=== PATIENT | female | born 1955 | race Caucasian/White ===

== ENCOUNTER 2018-03-07 16:56 | Outpatient (REF) | payer MEDICAID, SELFPAY ==
[2018-03-07 19:47] LABS: ALT 32 U/L (12-78); AST 22 U/L (15-37)
== END 2018-03-07 17:16 ==
LOC: NCHCN 16:56
PROVIDERS: PCP Internal Medicine; Visit Provider Nurse Practitioner Family
DX: Z51.81 Encounter for therapeutic drug level monitoring (principal)
CPT/HCPCS: 84450; 84460

== ENCOUNTER 2018-04-05 15:20 | Outpatient (REF) | payer MEDICAID, SELFPAY ==
[2018-04-05 19:12] LABS: ALT 28 U/L (12-78); AST 17 U/L (15-37)
== END 2018-04-05 15:40 ==
LOC: NCHCN 15:20
PROVIDERS: PCP Internal Medicine; Visit Provider Nurse Practitioner Family
DX: B35.1 Tinea unguium (principal)
CPT/HCPCS: 84450; 84460

== ENCOUNTER 2018-09-05 11:23 | Outpatient (REF) | payer MEDICAID, SELFPAY ==
[2018-09-05 19:31] LABS: Anion Gap 10.2 mmol/L (3-11); BUN 14 mg/dL (7-18); CO2 28.8 mmol/L (21.0-32.0); CREATININE 0.83 mg/dL (0.55-1.02); Calcium 9.6 mg/dL (8.5-10.1); Chloride 104 mmol/L (98-107); Glucose 100 mg/dL (70-100); Potassium 3.8 mmol/L (3.5-5.1); Sodium 143 mmol/L (136-145); TSH 1.46 uIU/mL (0.36-3.74)
== END 2018-09-05 11:43 ==
LOC: NCHCN 11:23
PROVIDERS: PCP Internal Medicine; Visit Provider Nurse Practitioner Family
DX: I10 Essential (primary) hypertension (principal)
CPT/HCPCS: 80048; 84443

== ENCOUNTER 2019-10-09 10:48 | Outpatient (REF) | payer MEDICAID, SELFPAY ==
[2019-10-09 20:27] LABS: Hemoglobin A1C 5.8 % (<5.7)
[2019-10-09 20:33] LABS: Iron 72 ug/dL (50-170)
[2019-10-09 20:50] LABS: Vitamin D 25 Total 37.3 ng/ml (30-100)
[2019-10-09 20:52] LABS: Anion Gap 4.7 mmol/L (3-11); BUN 16 mg/dL (7-18); CO2 32.3 mmol/L (21.0-32.0); CREATININE 0.75 mg/dL (0.55-1.02); Calcium 9.3 mg/dL (8.5-10.1); Calculated LDL 111 mg/dL (<100); Chloride 106 mmol/L (98-107); Cholesterol 194 mg/dL (<200); Ferritin 118 ng/mL (8-252); Glucose 89 mg/dL (74-106); HDL Cholesterol 49 mg/dL (40-60); Magnesium 1.8 mg/dL (1.8-2.4); Sodium 143 mmol/L (136-145); Triglyceride 173 mg/dL (<150)
== END 2019-10-09 11:08 ==
LOC: NCHCN 10:48
PROVIDERS: PCP Internal Medicine; Visit Provider Nurse Practitioner Family
DX: I10 Essential (primary) hypertension (principal); R73.03 Prediabetes; M25.571 Pain in right ankle and joints of right foot; Z13.220 Encounter for screening for lipoid disorders
CPT/HCPCS: 80048; 80061; 82306; 82728; 83036; 83540; 83735

== ENCOUNTER 2019-11-30 10:28 | Outpatient (REF) | payer MEDICAID, SELFPAY ==
[2019-11-30 19:49] LABS: Hemoglobin A1C 5.6 % (<5.7)
== END 2019-11-30 10:48 ==
LOC: NCHCN 10:28
PROVIDERS: PCP Internal Medicine; Visit Provider Nurse Practitioner Family
DX: R73.03 Prediabetes (principal)
CPT/HCPCS: 83036

== ENCOUNTER 2020-11-13 10:33 | Outpatient (REF) | payer MEDICAID, SELFPAY ==
[2020-11-13 21:57] LABS: Hemoglobin A1C 5.7 % (<5.7)
[2020-11-14 06:47] LABS: ALT 34 U/L (14-59); AST 18 U/L (15-37); Albumin 3.8 g/dL (3.4-5.0); Alkaline Phosphatase 78 U/L (46-116); Anion Gap 7.2 mmol/L (3-11); BUN 24 mg/dL (7-18); Bilirubin, Total 0.4 mg/dL (0.2-1.0); CO2 29.8 mmol/L (21.0-32.0); Calcium 9.2 mg/dL (8.5-10.1); Calculated LDL 134 mg/dL (<100); Chloride 105 mmol/L (98-107); Cholesterol 210 mg/dL (<200); Estimated GFR 55.82 (mL/min/1.73m2); Glucose 101 mg/dL (74-106); HDL Cholesterol 57 mg/dL (40-60); Sodium 142 mmol/L (136-145); Total Protein 7.2 g/dL (6.4-8.2); Triglyceride 96 mg/dL (<150)
== END 2020-11-13 10:34 | disposition home or self-care (01) ==
LOC: NCHCN 10:33
PROVIDERS: PCP Internal Medicine; Visit Provider Physician Assistant
DX: I10 Essential (primary) hypertension (principal); R73.03 Prediabetes; F41.1 Generalized anxiety disorder; E66.9 Obesity, unspecified
CPT/HCPCS: 80053; 80061; 83036

== ENCOUNTER 2022-01-08 15:49 | Outpatient (REF) | payer MEDICARE, MEDICAID, SELFPAY ==
[2022-01-08 19:15] LABS: Anion Gap 3.1 mmol/L (3-11); BUN 21 mg/dL (7-18); CO2 32.9 mmol/L (21.0-32.0); CREATININE 0.9 mg/dL (0.55-1.02); Calcium 9.6 mg/dL (8.5-10.1); Chloride 103 mmol/L (98-107); Estimated GFR 70.95 (mL/min/1.73m2); Glucose 109 mg/dL (74-106); Potassium 4.2 mmol/L (3.5-5.1); Sodium 139 mmol/L (136-145)
== END 2022-01-08 15:50 | disposition home or self-care (01) ==
LOC: NCHCN 15:49
PROVIDERS: PCP Internal Medicine; Visit Provider Physician Assistant
DX: I10 Essential (primary) hypertension (principal); E66.9 Obesity, unspecified
CPT/HCPCS: 80048

== ENCOUNTER 2022-07-07 13:32 | Outpatient (REF) | payer MEDICARE, MEDICAID, SELFPAY ==
[2022-07-07 18:33] LABS: HCT 44.3 % (36.0-46.0); HGB 14.4 g/dL (11.2-15.7); MCH 31.2 pg (27.0-33.0); MCHC 32.5 % (32.0-36.0); MCV 96 fL (80-95); MPV 10.3 fL (8.0-11.0); Platelet Count 278 10^3/uL (130-400); RBC 4.61 10^6/uL (3.93-5.22); RDW 13.7 % (11.7-14.6); RDW-SD 48.8 fL; WBC 4.48 10^3/uL (4.4-10.8)
[2022-07-07 19:08] LABS: Vitamin D 25 Total 39.4 ng/mL (30-100)
== END 2022-07-07 13:33 | disposition home or self-care (01) ==
LOC: NCHCN 13:32
PROVIDERS: PCP Internal Medicine; Visit Provider Physician Assistant
DX: I10 Essential (primary) hypertension (principal); R73.03 Prediabetes; M85.88 Other specified disorders of bone density and structure, other site; R68.89 Other general symptoms and signs
CPT/HCPCS: 82306; 85027; 84443

== ENCOUNTER 2022-08-06 09:30 | Outpatient (REF) | payer MEDICARE, MEDICAID, SELFPAY ==
[2022-08-06 19:09] LABS: Anion Gap 5.7 mmol/L (3-11); BUN 17 mg/dL (7-18); CO2 33.3 mmol/L (21.0-32.0); CREATININE 0.9 mg/dL (0.55-1.02); Calcium 9.3 mg/dL (8.5-10.1); Chloride 101 mmol/L (98-107); Estimated GFR 70.95 (mL/min/1.73m2); Glucose 98 mg/dL (74-106); Sodium 140 mmol/L (136-145)
== END 2022-08-06 09:31 | disposition home or self-care (01) ==
LOC: NCHCN 09:30
PROVIDERS: PCP Internal Medicine; Visit Provider Physician Assistant
DX: I10 Essential (primary) hypertension (principal)
CPT/HCPCS: 80048

== ENCOUNTER 2023-07-14 10:57 | Outpatient (REF) | payer MEDICARE, MEDICAID, SELFPAY ==
[2023-07-20 17:59] LABS: 2-OH-Ethyl-Flurazepam Negative ng/mL (Cutoff: 10); 7-NH-Clonazepam Negative ng/mL (Cutoff: 10); 7-NH-Flunitrazepam Negative ng/mL (Cutoff: 10); Alpha OH-Alprazolam Negative ng/mL (Cutoff: 10); Alpha-OH Midazolam Negative ng/mL (Cutoff: 10); Alpha-OH-Triazolam Negative ng/mL (Cutoff: 10); Alprazolam Negative ng/mL (Cutoff: 10); Benzodiazepines Interpretation Negative.; Chlordiazepoxide Negative ng/mL (Cutoff: 10); Clobazam Negative ng/mL (Cutoff: 10); Clonazepam Negative ng/mL (Cutoff: 10); Diazepam Negative ng/mL (Cutoff: 10); Flurazepam Negative ng/mL (Cutoff: 10); Lorazepam Negative ng/mL (Cutoff: 10); Midazolam Negative ng/mL (Cutoff: 10); N-Desmethylclobazam Negative ng/mL (Cutoff: 10); Prazepam Negative ng/mL (Cutoff: 10); Temazepam Negative ng/mL (Cutoff: 10); Triazolam Negative ng/mL (Cutoff: 10); Zolpidem Carboxylic acid Negative ng/mL (Cutoff: 10)
== END 2023-07-14 10:58 | disposition home or self-care (01) ==
LOC: NCHCN 10:57
PROVIDERS: PCP Internal Medicine; Visit Provider Physician Assistant
DX: F41.9 Anxiety disorder, unspecified (principal)
CPT/HCPCS: 80346

== ENCOUNTER 2023-07-15 13:00 | Outpatient (REF) | payer MEDICARE, MEDICAID, SELFPAY ==
[2023-07-15 19:42] LABS: ALT 31 U/L (14-59); AST 21 U/L (15-37); Albumin 3.6 g/dL (3.4-5.0); Alkaline Phosphatase 74 U/L (46-116); Anion Gap 7.4 mmol/L (3-11); BUN 18 mg/dL (7-18); Bilirubin, Total 0.4 mg/dL (0.2-1.0); CO2 31.6 mmol/L (21.0-32.0); CREATININE 0.9 mg/dL (0.55-1.02); Calcium 9.7 mg/dL (8.5-10.1); Chloride 103 mmol/L (98-107); Estimated GFR 70.51 (mL/min/1.73m2); Glucose 86 mg/dL (74-106); Potassium 4.1 mmol/L (3.5-5.1); Sodium 142 mmol/L (136-145); Total Protein 7.1 g/dL (6.4-8.2); Vitamin B12 575 pg/mL (193-986); Vitamin D 25 Total 30.4 ng/mL (30-100)
== END 2023-07-15 13:01 | disposition home or self-care (01) ==
LOC: NCHCN 13:00
PROVIDERS: PCP Internal Medicine; Visit Provider Physician Assistant
DX: M85.80 Other specified disorders of bone density and structure, unspecified site (principal); I10 Essential (primary) hypertension; F41.9 Anxiety disorder, unspecified
CPT/HCPCS: 80053; 82306; 82607

== ENCOUNTER 2023-07-22 12:30 | Outpatient (REF) | payer MEDICARE, SELFPAY ==
[2023-07-22 19:24] LABS: Calculated LDL 128 mg/dL (<100); Cholesterol 212 mg/dL (<200); HDL Cholesterol 61 mg/dL (40-60); Triglyceride 116 mg/dL (<150)
== END 2023-07-22 12:31 | disposition home or self-care (01) ==
LOC: NCHCN 12:30
PROVIDERS: PCP Internal Medicine; Visit Provider Physician Assistant
DX: I10 Essential (primary) hypertension (principal)
CPT/HCPCS: 80061

== ENCOUNTER 2024-03-16 20:08 | Outpatient (REF) | payer MEDICARE, SELFPAY ==
--- OUTSIDE RECORDS SUMMARY | 2024-03-16 20:55 | XMS_ITS | Encounter Summary ---
Author Organization [facility] Address [address] [place] [address] Care Team Providers Care Health Information Technician Name Role Phone Unavailable Primary Care Provider Unavailabl e Encounter Details Date Type Department Care Team (Late st Contact Info) Description 04/13/2011 Results Only [facility] Laboratory Services - [facility] ([facility] [address], [place] [id number] [place], [facility] [address] [place], [place] [id number] Social History Tobacco Use Types Packs/Day Years Used Date Smoking Tobacco: Never Assessed Comments Unknown Sex and Gender Information Value Date Recorded Sex Assigned at Not on file Legal Sex Female 17:56 EST Gender Identity Not on file Sexual Orientation Not on file documented as of this encounter Plan of Treatment Not on file documented as of this encounter Procedures Procedure Name Priority Date/Time Associated Diagnosis Comments PAP TEST- RESULT ONLY Routine 04/13/2011 0:00 EST documented in this encounter Results * PAP TEST- RESULT ONLY (04/13/2011 0:00 EST) Pathology Report: CYTOPATHOLOGY REPORT Reports generated via electronic interface contain original data; however they are lacking the format of the original report. Caution should be taken when reading/interpreti ng unformatted reports. Name: ? TAMIKA RAI ? Accession #: ? [id number] ? : ? 1955 (Age: 55) ??F ?Collect Date: ? 04/13/2011 ? Location: ? [facility] ? Receive Date: ? 04/14/2011 ? Provider: KINGS HENRY CNM Copy to: ? Final Report SPECIMEN ADEQUACY ? Satisfactory for Evaluation - transformation zone component present GENERAL CATEGORIZATION ? Negative for Intraepithelial Lesion or Malignancy INTERPRETATION ? Shift in rosibel present suggestive of bacterial vaginosis. Last Menstural Period: 09/17 Other: Additional clinical information: previous pap WNL 2006 Specimen/Source: ??Pap Test, Cervix/Endocervix, ThinPrep Imaging System with manual evaluation Document reviewed and electronically signed by: ? Cat Turk, DARRYL(ASCP) ? Report ??Date: 04/15/2011 16:02 HPV with Pap Test ? Date Ordered: ? 04/15/2011 ? Status: ?? Signed Out ?Date Complete: ? 04/20/2011 ? By: ??System Interface ? Date Reported: ? 04/20/2011 ? Interpretation RESULT: Negative for HPV types 16, 18, 31, 33, 35, 39, 45, 51, 52, 56, 58, 59, and 68. Comments Document reviewed and electronically signed by: ? System Interface ? Report date: 04/20/2011 By the signature above, the attending physician certifies that he/she has personally conducted a gross and/or microscopic examination of the described specimens and rendered or confirmed the above diagnosis. End of Report [facility] 04/13/2011 04/14/2011 us [facility] [place] CNM PATHOLOGY ORDERABLES Fin al Result [facility] [address] [place] [address] documented in this encounter Visit Diagnoses Not on filedocumented in this encounter
--- OUTSIDE RECORDS SUMMARY | 2024-03-16 20:55 | XMS_ITS | Clinical Summary ---
Author Organization [facility] Address [address] [place] [address] Care Team Providers Care Yarn Carrier Name Role Phone Unknown, Provider MD Primary Care Provider Unava ilable Social History Tobacco Use Types Packs/Day Years Used Date Smoking Tobacco: Never Assessed Comments Unknown Sex and Gender Information Value Date Recorded Sex Assigned at Not on file Legal Sex Female 17:56 EST Gender Identity Not on file Sexual Orientation Not on file Plan of Treatment Health Maintenance Due Date Last Done Comments Hepatitis C Screen 1955 Fall Risk Screening 2021 COVID-19 Vaccine (2023- season) 2023 RSV Immunization ( o r 60+ Years) (1 - 1-dose 75+ series) 08/20/2031 Care Teams Yarn Carrier Relationship Specialty Start Date End Date Unknown, Provider, PCP - General 08/05/16
--- OUTSIDE RECORDS SUMMARY | 2024-03-16 20:55 | XMS_ITS | Continuity of Care Document ---
Author Organization [facility] Address [address] [place] [address] Care Team Providers Care Rn Referral Name Role Phone Primeau IPHCJohn Primary Care Physician Encounter [facility] Date(s): 02/27/22 - 02/27/22 [facility] [address] [place] [address] Discharge Disposition: Home or Self Care Attending Physician: Lurdes Kemp PA-C Admitting Physician: Lurdes Kemp PA-C Referring Physician: Lurdes Kemp PA-C Allergies, Adverse Reactions, Alerts Substance Reaction Severity Status ampicillin Skin rash Unknown Active codeine Hallucinations Unknown Active amoxicillin-clavulanate Skin rash Severe Acti ve penicillins Skin rash Unknown Active KAREN inhibitors Unknown Active Immunizations Given and Recorded Vaccine Date Status Refusal Reason rubella virus vaccine 02/09/00 Recorded Medications halobetasol 0.05% topical ointment 1 debbie, Topical, Daily, # 50 g, 1 Refill(s), Pharmacy: [id number] Start Date: 10/17/21 Status: Ordered ibuprofen 200 mg oral capsule 200 mg = 1 cap, Oral, every 6 hr, PRN other (see comment), as needed Start Date: 10/06/21 Status: Ordered multivitamin adult, oral tablet 2 tab, Oral, Daily, one Daily Complete Start Date: 10/06/21 Status: Ordered triamterene-hydrochlorothiazide 37.5 mg-25 mg oral tablet 0 Refill(s) Start Date: 10/17/21 Status: Ordered Problem List Condition Confirmation Course Effective Dates Status Health St atus Informant Anxiety Confirmed Active Breast lump Confirmed Active Genuine stress incontinence Confirmed Active Hypertensive disorder Confirmed Active Lichen sclerosus et atrophicus 1 Confirmed Active Obesity Confirmed Active Vertigo Confirmed Active 1From 10-17-2020 visit: Well-managed with clobatesol when needed. Procedures Procedure Date Related Diagnosis Body Site Status Procedure on ankle 1 07/24/19 Comp leted Open reduction of fracture w ith internal fixation (procedure) 2 04/25/19 Completed Due 10/2026 3, 4 08/03/16 Completed Cholecystectomy 02/07/99 Completed Tubal ligation 02/07/91 Completed Lumpectomy of right breast 02/07/89 Completed 1hardware removal R ankle 2ORIF R distal fibula fx 3Pap Due - 07/2021 11/25/06, 04/13/11, 08/04/16 - Negative/Negative - Neg/Neg Next pap due 10/2026 Social History Social History Type Response Tobacco Never tobacco user T obacco Use:. Sex Female Patient Care team information Personnel Name: [facility], John Small MD Address: Address: [address] [address]- [place]
--- OUTSIDE RECORDS SUMMARY | 2024-03-16 20:55 | XMS_ITS | Encounter Summary ---
Author Organization [facility] Address [address] [place] [address] Care Team Providers Care Tactical Intelligence Officer Name Role Phone Unavailable Primary Care Provider Unavailabl e Encounter Details Date Type Department Care Team (Late st Contact Info) Description 02/07/2004 Results Only [facility] conversion [address] [place] [address] Juanis Hughes, MELT HOUSE SUPERVISOR Social History Tobacco Use Types Packs/Day Years [...] Procedure Name Priority Date/Time Associated Diagnosis Comments CYTOPATHOLOGY Routine 02/07/2004 0:00 EST documented in this encounter Results * CYTOPATHOLOGY (02/07/2004 0:00 EST) Pathology Report: CYTOPATHOLOGY REPORT Reports generated via electronic interface contain original data; however they are lacking the format of the original report. Caution should be taken when reading/interpreti ng unformatted reports. Name: ? TAMIKA RAI ? Accession #: ? [id number] : ? 1955 (Age: 48) ??F ?Collect Date: ? 02/07/2004 Location: ? [facility] ? Receive Date: ? 02/11/2004 Provider: ?JUANIS HUGHES APRN Copy to: ? Specimen/Source: ?ThinPrep Pap Test, Source Not Provided Last Menstrual Period: ? 01/18/04 Other: ? HPVA - HPV testing requested if ASC-US on the current ThinPrep Pap test. ? SPECIMEN ADEQUACY ? Satisfactory for Evaluation - transformation zone component present GENERAL CATEGORIZATION ? Negative for Intraepithelial Lesion or Malignancy INTERPRETATION ? Shift in rosibel present suggestive of bacterial vaginosis. ? Document reviewed and electronically signed by: ? DARRYL Dhaliwal(ASCP) ? Report Date: ??02/13/2004 12:09 End of Report JESSICA SINGH 02/07/2004 02/11/2004 us Juanis Hughes APRN PATHOLOGY ORDERABLES Fi nal Result JESSICA SINGH [address] [place] [address] documented in this encounter Visit Diagnoses Not on filedocumented in this encounter
--- OUTSIDE RECORDS SUMMARY | 2024-03-16 20:55 | XMS_ITS | Referral Summary ---
Author Organization [facility] Address [address] [place] [address] Care Team Providers Care Lift Operator Name Role Phone Unknown, Provider Primary Care Provider Unava ilable Social History Tobacco Use Types Packs/Day Years Used Date Smoking Tobacco: Never Assessed Comments Unknown Sex and Gender Information Value Date Recorded Sex Assigned at Not on file Legal Sex Female 17:56 EST Gender Identity Not on file Sexual Orientation Not on file Plan of Treatment Not on file Care Teams Lift Operator Relationship Specialty Start Date End Date Unknown, Provider, PCP - General 08/05/16
--- OUTSIDE RECORDS SUMMARY | 2024-03-16 20:55 | XMS_ITS | Encounter Summary ---
Author Organization [facility] Address [address] [place] [address] Care Team Providers Care Postmaster Relief Name Role Phone Unknown, Provider Primary Care Provider Unava ilable Encounter Details Date Type Department Care Team (Late st Contact Info) Description 07/21/2019 Lab Requisition [facility] Pathology & Laboratory Medicine - [facility] [address] [place] [address] Outr Resulting Lab, Provider Social History Tobacco Use Types Packs/Day Years [...] Procedure Name Priority Date/Time Associated Diagnosis Comments DO NOT ORDER STANDALONE - BROAD COVID TEST Today 07/21/2019 9:05 EDT COVID-19 TESTING Routine 07/21/2019 9:05 EDT documented in this encounter Results * DO NOT ORDER STANDALONE - BROAD COVID TEST (07/21/2019 9:05 EDT) COVID-19 rt-PCR Result NEGATIVE Negative 07/22/2019 19:36 EDT [facility] Comment: 2019-novel Coronavirus (2019-nCoV) not detected by the qRT-PCR assay. Consider testing for other respiratory viruses or re-collecting for 2019-nCoV testing. Note: Optimum timing for peak viral levels during infections caused by 2019-nCoV have not been determined. Collection of multiple specimens from the same patient may be necessary to detect the virus. Limitations Positive results are indicative of active infection with SARS-CoV-2 but do not rule out bacterial infection or co-infection with other viruses. The agent detected may not be the definite cause of disease. In addition, detection of viral RNA may not indicate the presence of infectious virus or that SARS-CoV-2 is the causative agent for clinical symptoms. Negative results do not preclude SARS-CoV-2 infection and should not be used as the sole basis for patient management decisions. Negative results must be combined with clinical observations, patient history, and epidemiological information. False negative results may also occur if amplification inhibitors are present in the specimen or if inadequate numbers of organisms are present in the specimen. Optimum specimen types and timing for peak viral levels during infections caused by SARS-CoV-2 have not been fully determined. Collection of multiple specimens (types and time points) from the same patient may be necessary to detect the virus. The test was validated for use with upper respiratory specimens obtained via nasopharyngeal or oropharyngeal swabs in VTM, UTM, M4, M5, M6, saline, and MTM media. The performance of this test has not been established for other specimens. Specimens collected using other FDA recommended Specimen Collection Materials listed in the FDA COVID-19 Diagnostic Technologies communication (May 04, 2019) are processed with the caveat that they were not all validated for use with this test and the result must be interpreted in this context. Furthermore, a false negative results may occur if a specimen is improperly collected, transported or handled. If the virus mutates in the RT-PCR target region, SARS-CoV-2 may not be detected or may be detected less predictably. Inhibitors or other types of interference may produce a false negative result. An interference study evaluating the effect of common cold medications was not performed. This test is not FDA-cleared but its performance characteristics were established by our CLIA-certified, CAP-accredited, high complexity laboratory in accordance with CLIA regulations, [employer] (CAP) guidelines (Apr 27, 2019), and FDA guidance (Apr 08, 2019). This test is only for use under the Food and Drug Administration's Emergency Use Authorization. Swab ENTIRE NASOPHARYNX / Unknown 07/21/2019 9:05 EDT 07/21/2019 21:06 EDT us Provider Outr Resulting Lab MICROBIOLOGY - GENER AL ORDERABLES Final Result [facility] [place], [place] * COVID-19 TESTING (07/21/2019 9:05 EDT) COVID-19 rt-PCR Result NEGATIVE Negative 07/22/2019 23:24 EDT [facility] Comment: 2019-novel Coronavirus (2019-nCoV) not detected by the qRT-PCR assay. Consider testing for other respiratory viruses or re-collecting for 2019-nCoV testing. Note: Optimum timing for peak viral levels during infections caused by 2019-nCoV have not been determined. Collection of multiple specimens from the same patient may be necessary to detect the virus. Limitations Positive results are indicative of active infection with SARS-CoV-2 but do not rule out bacterial infection or co-infection with other viruses. The agent detected may not be the definite cause of disease. In addition, detection of viral RNA may not indicate the presence of infectious virus or that SARS-CoV-2 is the causative agent for clinical symptoms. Negative results do not preclude SARS-CoV-2 infection and should not be used as the sole basis for patient management decisions. Negative results must be combined with clinical observations, patient history, and epidemiological information. False negative results may also occur if amplification inhibitors are present in the specimen or if inadequate numbers of organisms are present in the specimen. Optimum specimen types and timing for peak viral levels during infections caused by SARS-CoV-2 have not been fully determined. Collection of multiple specimens (types and time points) from the same patient may be necessary to detect the virus. The test was validated for use with upper respiratory specimens obtained via nasopharyngeal or oropharyngeal swabs in VTM, UTM, M4, M5, M6, saline, and MTM media. The performance of this test has not been established for other specimens. Specimens collected using other FDA recommended Specimen Collection Materials listed in the FDA COVID-19 [employer] communication (May 04, 2019) are processed with the caveat that they were not all validated for use with this test and the result must be interpreted in this context. Furthermore, a false negative results may occur if a specimen is improperly collected, transported or handled. If the virus mutates in the RT-PCR target region, SARS-CoV-2 may not be detected or may be detected less predictably. Inhibitors or other types of interference may produce a false negative result. An interference study evaluating the effect of common cold medications was not performed. This test is not FDA-cleared but its performance characteristics were established by our CLIA-certified, CAP-accredited, high complexity laboratory in accordance with CLIA regulations, [employer] (CAP) guidelines (Apr 27, 2019), and FDA guidance (Apr 08, 2019). This test is only for use under the Food and Drug Administration's Emergency Use Authorization. Performing Lab [facility] 07/22/2019 23:24 EDT [facility] Swab ENTIRE NASOPHARYNX / Unknown 07/21/2019 9:05 EDT 07/21/2019 21:06 EDT us Provider Outr Resulting Lab MICROBIOLOGY - GENER AL ORDERABLES Final Result [facility] [address] [place] [address] [facility] [place], [place] documented in this encounter Visit Diagnoses Not on filedocumented in this encounter Care Teams Postmaster Relief Relationship Specialty Start Date End Date Unknown, Provider, PCP - General 08/05/16 documented as of this encounter
--- OUTSIDE RECORDS SUMMARY | 2024-03-16 20:55 | XMS_ITS | Encounter Summary ---
Author Organization [facility] Address [address] [place] [address] Care Team Providers Care Solo Musician Name Role Phone Unknown, Provider Primary Care Provider Unava ilable Encounter Details Date Type Department Care Team (Late st Contact Info) Description 08/04/2016 Results Only [facility] [phone] [place], [facility] [address] [place] [address] Social History Tobacco Use Types Packs/Day Years [...] Diagnosis Comments PAP TEST- RESULT ONLY Routine 08/04/2016 0:00 EDT documented in this encounter Results * PAP TEST- RESULT ONLY (08/04/2016 0:00 EDT) Pathology Report: CYTOPATHOLOGY REPORT Reports generated via electronic interface contain original data; however they are lacking the format of the original report. Caution should be taken when reading/interpreti ng unformatted reports. Name: ? TAMIKA RAI ? Accession #: ? [id number] ? : ? 1955 (Age: 60) ??F ?Collect Date: ? 08/04/2016 ? Location: ? [facility] ? Receive Date: ? 08/06/2016 ? Provider: KINGS HENRY NMW Copy to: ? Final Report SPECIMEN ADEQUACY ? Satisfactory for Evaluation - transformation zone component absent GENERAL CATEGORIZATION ? Negative for Intraepithelial Lesion or Malignancy ?? Last Menstrual Period: 09/17 Hormonal/Contracep tive status: Tubal ligation Other: Previous NIL Pap(s): 07/15, 04/19 Specimen/Source: ??Pap Test, Cervix, ThinPrep Imaging System with manual evaluation Document reviewed and electronically signed by: ? DARRYL Miranda(ASCP) ? Report ??Date: 08/18/2016 10:19 HPV with Pap Test ? Date Ordered: ? 08/18/2016 ? Status: ?? Signed Out ?Date Complete: ? 2016 ? By: ??System Interface ? Date Reported: ? 2016 ? Interpretation RESULT: Negative for HPV. No E6 or E7 mRNA is detected from HPV types 16,18,31,33,35, 39,45,51,52,56,58, 59,66, and 68 by burring wheel operator mediated amplification. Comments Document reviewed and electronically signed by: ? System Interface ? Report date: 2016 By the signature above, the attending physician certifies that he/she has personally conducted a gross and/or microscopic examination of the described specimens and rendered or confirmed the above diagnosis. End of Report [facility] 08/04/2016 08/06/2016 us Kings Henry [facility] PATHOLOGY ORDERABLES Fin al Result [facility] [address] [place] [address] documented in this encounter Visit Diagnoses Not on filedocumented in this encounter Care Teams Solo Musician Relationship Specialty Start Date End Date Unknown, Provider, PCP - General 08/05/16 documented as of this encounter
--- OUTSIDE RECORDS SUMMARY | 2024-03-16 20:55 | XMS_ITS | Continuity of Care Document ---
Author Organization [facility] Address [address] [place] [address] Care Team Providers Care Complaint Evaluation Supervisor Name Role Phone Primeau IPHCJohn Primary Care Physician Encounter [facility] [id number] Date(s): 01/19/24 - 01/19/[address] [address] Discharge Disposition: Home or Self Care Attending Physician: Lurdes Kemp PA-C Admitting Physician: Lurdes Kemp PA-C Referring Physician: Lurdes Kemp PA-C Allergies, Adverse Reactions, Alerts Substance Criticality Severity Reaction Reaction Severity Status ampicillin Unable to assess criticality Unknown Skin rash Active codeine Unable to assess criticality Unknown Hallucinations Active amoxicillin-clavula anupama High criticality Severe Skin rash Active penicillins Unable to assess criticality Unknown Skin rash Active KAREN inhibitors Unable to assess criticality Unknown Active Immunizations Given and Recorded Vaccine Date Status Refusal Reason rubella virus vaccine 02/09/00 Recorded Medications halobetasol 0.05% topical ointment 1 debbie, Topical, Daily, # 50 g, 1 Refill(s), Pharmacy: [id number] Start Date: 10/17/21 Status: Ordered ibuprofen 200 [...] tobacco user T obacco Use:. Sex Female Sex Representation Female (finding) Patient Care team information Care Team Personnel Name: John Hanna MD Position: No Access Member Role: Primary Care Physician Address: [address] Care Team Related Persons Name: RIAN RAI Name: ALBERTA RAI Insurance Providers Guarantor name: TAMIKA RAI Health Plan Information #: 1 Payer: [employer] REPLACEMENT [facility] Member Number: [id number] Policy Number: NA Health Plan Information #: 2 Payer: [employer] MED[employer] REPLACEMENT [facility] Member Number: [id number] Policy Number: NA Health Plan Information #: 3 Payer: [employer] [place] [employer] Member Number: NA Policy Number: NA
--- OUTSIDE RECORDS SUMMARY | 2024-03-16 20:55 | XMS_ITS | Continuity of Care Document ---
Author Organization [facility] Address [address] [place] [address] Care Team Providers Care Optical Dispenser Name Role Phone Lurdes Kemp Primary Care Physician Encounter [facility] Date(s): 03/07/24 - 03/07/[address] [address] Discharge Disposition: Home or Self Care Attending Physician: Lurdes Kemp PA-C Admitting Physician: Lurdes Kemp PA-C Referring Physician: Lurdes Kemp PA-C Encounter Type: Outpatient Allergies, Adverse Reactions, Alerts Substance Criticality Severity [...] Daily, # 50 g, 1 Refill(s), [id number] Start Date: 10/17/21 Status: Ordered Quantity: 50.0 Unit: g Repeat number: 2 Indication: Lichen sclerosus et atrophicus ibuprofen 200 mg oral capsule 200 mg = 1 cap, Oral, every 6 hr, PRN other (see comment), as needed Start Date: 10/06/21 Status: Ordered Repeat number: 1 multivitamin adult, oral tablet 2 tab, Oral, Daily, one Daily Complete Start Date: 10/06/21 Status: Ordered Repeat number: 1 triamterene-hydrochlorothiazide 37.5 mg-25 mg oral tablet 0 Refill(s) Start Date: 10/17/21 Status: Ordered Repeat number: 1 Problem List Condition Confirmation Course Effective Dates [...] Care team information Care Team Personnel Name: Lurdes Kemp PA-C Position: PowerChart View Only Member Role: Primary Care Physician Address: [address] Telecom: Care Team Related Persons Name: RIAN RAI Name: ALBERTA RAI Insurance Providers Guarantor name: TAMIKA VIDES Health Plan Information #: 1 Payer: [employer] Member Number: [id number] Policy Number: NA Group Number: [id number] Health Plan Information #: 2 Payer: [employer] Member Number: [id number] Policy Number: NA Group Number: NA Health Plan Information #: 3 Payer: PENDING SECURITY TEST ENGINEER Member Number: NA Policy Number: NA Group Number: NA
--- OUTSIDE RECORDS SUMMARY | 2024-03-16 20:55 | XMS_ITS | Encounter Summary ---
Author Organization [facility] Address [address] [place] [address] Care Team Providers Care Building Performance Specialist Name Role Phone Unavailable Primary Care Provider Unavailabl e Encounter Details Date Type Department Care Team (Late st Contact Info) Description 10/18/2002 Results Only [facility] [address] [place] [address] Juanis Hughes, BLUING OVEN TENDER Social History Tobacco Use Types Packs/Day Years [...] Priority Date/Time Associated Diagnosis Comments CYTOPATHOLOGY Routine 10/18/2002 0:00 EDT documented in this encounter Results * CYTOPATHOLOGY (10/18/2002 0:00 EDT) Pathology Report: CYTOPATHOLOGY REPORT Reports generated via electronic interface contain original data; however they are lacking the format of the original report. Caution should be taken when reading/interpreti ng unformatted reports. Name: ? TAMIKA RAI ? Accession #: ? [id number] : ? 1955 (Age: 47) ??F ?Collect Date: ? 10/18/2002 Location: ? [facility] ? Receive Date: ? 10/20/2002 Provider: ?JUANIS HUGHES APRN Copy to: ? Specimen/Source: ?ThinPrep Pap Test, Cervix/Endocervix Last Menstrual Period: ? 10/14/02 Other: ? HPVA - HPV testing requested if ASC-US on the current ThinPrep Pap test. ? SPECIMEN ADEQUACY ? Satisfactory for Evaluation - transformation zone component present GENERAL CATEGORIZATION ? Other, see interpretation INTERPRETATION ? Endometrial cells present in a woman equal to or greater than age 40. Negative for Intraepithelial Lesion or Malignancy. ? COMMENT ? Benign appearing endometrial cells on Pap tests are usually a normal finding in women with regular menstrual cycles, especially if the Pap was collected during the first half of the menstrual cycle. ??There is data showing that endometrial cells on Pap tests may be associated with endometrial/uterin e abnormalities in post menopausal women or in premenopausal women with abnormal bleeding. ??There is limited data on the significance of benign endometrial cells in post menopausal women on HRT. ??Clinical correlation is recommended. Note: ?? The Pap test is not an accurate test for the screening of endometrial lesions and should not be used as a follow up in patients with clinical suspicion of endometrial pathology. ? Document reviewed and electronically signed by: ? DARRYL Miranda(ASCP) ? Report Date: ??10/24/2002 15:25 End of Report [facility]ESS[facility] 10/18/2002 10/20/2002 us Juanis Hughes APRN PATHOLOGY ORDERABLES Fi nal Result JESSICA SINGH [address] [place] [address] documented in this encounter Visit Diagnoses Not on filedocumented in this encounter
--- OUTSIDE RECORDS SUMMARY | 2024-03-16 20:55 | XMS_ITS | Continuity of Care Document ---
Author Organization [facility] Address [address] [place] [address] Care Team Providers Care Certified Medical Coding Specialist Name Role Phone [place] IPHCJohn Primary Care Physician [facility] [id number] Date(s): 10/17/21 - 03/29/22 [facility] [address] [place] [address] Encounter Diagnosis Screening mammogram for breast cancer(Discharge Diagnosis) - 02/27/22 Discharge Disposition: Home or Self Care Attending Physician: Virgen Erwin CNM Admitting Physician: Virgen Erwin CNM Referring Physician: Virgen Erwin CNM Allergies, Adverse Reactions, Alerts Substance Reaction Severity Status ampicillin Skin rash Unknown Active codeine Hallucinations Unknown Active amoxicillin-clavulanate Skin rash Severe Acti ve penicillins Skin rash Unknown Active KAREN inhibitors Unknown Active Immunizations Given and Recorded Vaccine Date Status Refusal Reason rubella virus vaccine 02/09/00 Recorded Medications halobetasol 0.05% topical ointment 1 debbie, Topical, Daily, # 50 g, 1 Refill(s), Pharmacy: [id number] Start Date: 10/17/21 Status: Ordered ibuprofen 200 [...] Use:. Sex Female Patient Care team information Care Team Personnel Name: [facility] Position: No Access Member Role: Primary Care Physician Address: Address: [address] [address]- Care Team Related Persons Name: RIAN RAI Address: Home
--- OUTSIDE RECORDS SUMMARY | 2024-03-16 20:55 | XMS_ITS | Encounter Summary ---
Author Organization [facility] Address [address] [place] [address] Care Team Providers Care Polisher And Sander Name Role Phone Unknown, Provider Primary Care Provider Unava ilable Encounter Details Date Type Department Care Team (Latest Contact Info) Description 10/17/2021 Lab Requisition [facility] Pathology & Laboratory Medicine - [facility] [address] [place] [address] Virgen Gomez, [address] [id number] Encounter for gynecological examination (general) (routine) without abnormal findings; Encounter for screening for human papillomavirus (HPV) Social History Tobacco Use Types Packs/Day Years [...] Name Priority Date/Time Associated Diagnosis Comments PAP TEST Today 10/17/2021 13:51 EDT HPV DNA DETECTION WITH GENOTYPING, PCR Today 10/17/2021 13:51 EDT documented in this encounter Results * HUMAN PAPILLOMAVIRUS (HPV) DETECTION-HIGH RISK TYPES (10/17/2021 13:51 EDT) HPV other High Risk types, PCR Negative Negative 10/21/2021 18:35 EDT [facility] Comment:No E6 or E7 mRNA is detected from HPV types 16,18,31,33,35,39,45,51,52,56,58,59,66, and 68 by oracle fusion developer mediated amplification. Papanicolaou smear specimen (specimen) CERVIX UTERI STRUCTURE / Unknown 10/17/2021 13:51 EDT 10/21/2021 9:09 EDT us Virgen Gomez [facility] MICROBIOLOGY - GENERAL O RDERABLES Final Result [facility] [address] [place] [id number] * PAP TEST (10/17/2021 13:51 EDT) Specimens A. Cervix and/or Endocervix , ThinPrep Imaging System with Manual Evaluation 10/21/2021 18:35 T [facility] Specimen Adequacy Satisfactory for Evaluation - transformation zone component absent 10/21/2021 18:35 [facility] General Categorization Negative for intraepithelial lesion or malignancy 10/21/2021 18:35 T [facility] Attestation . 10/21/2021 18:35 [facility] at 1835 Clinical History See below 10/22/19 18:35 T [facility] HPV The result for the Human Papillomavirus (HPV) Detection-High Risk Types is Negative. No E6 or E7 mRNA is detected from HPV types 16,18,31,33,35,39 ,45,51,52,56,58,5 9,66, and 68 by oracle fusion developer mediated amplification.Nataliia ting was performed on specimen [id number] and was resulted on 10/21/2021 1832 EDT by LINDA, LAB INSTRUMENT RESULTS IN 10/21/2021 18:35 T [facility] Performing Lab [facility] 10/21/2021 18:35 T [facility] Scanned Images 10/21/2021 18:35 T [facility] Papanicolaou smear specimen (specimen) CERVIX UTERI STRUCTURE / Unknown 10/17/2021 13:51 EDT 10/20/2021 8:52 EDT us Virgen Gomez [facility] PATHOLOGY ORDERABLES Fin al Result [facility] [address] [place] [address] documented in this encounter Visit Diagnoses Diagnosis Encounter for gynecological examination (general) (routine) without abnormal findings Encounter for screening for human papillomavirus (HPV) Special screening examination for human papillomavirus (HPV) documented in this encounter Care Teams Polisher And Sander Relationship Specialty Start Date End Date Unknown, Provider, PCP - General 08/05/16 documented as of this encounter
--- OUTSIDE RECORDS SUMMARY | 2024-03-16 20:55 | XMS_ITS | Encounter Summary ---
Author Organization [facility] Address [address] [place] [address] Care Team Providers Care Automated Weaver Name Role Phone Unavailable Primary Care Provider Unavailabl e Encounter Details Date Type Department Care Team (Late st Contact Info) Description 11/25/2006 Results Only [facility] [place] [facility] [address] [place] [address] Juanis Hughes APRN Social History Tobacco Use Types Packs/Day Years [...] Procedure Name Priority Date/Time Associated Diagnosis Comments HPV DETECTION, HIGH RISK TYPES Routine 11/25/2006 22:03 EDT CYTOPATHOLOGY Routine 11/25/2006 0:00 EDT documented in this encounter Results * HUMAN PAPILLOMA VIRUS DNA TEST (11/25/2006 22:03 EDT) Specimen Description Cervix, ThinPrep vial [facility] Result Negative for HPV types 16, 18, 31, 33, 35, 39, 45, 51, 52, 56, 58, 59, and 68. [facility] Report Status Final [id number] [facility] 11/25/2006 22:0 3 EDT 12/04/2006 22:03 EDT us Juanis Hughes APRN MICROBIOLOGY - GENERAL ORDERABLES Final Result [facility] [address] [place] [address] * CYTOPATHOLOGY (11/25/2006 0:00 EDT) Pathology Report: CYTOPATHOLOGY REPORT Reports generated via electronic interface contain original data; however they are lacking the format of the original report. Caution should be taken when reading/interpreti ng unformatted reports. Name: ? TAMIKA RAI ? Accession #: ? [id number] : ? 1955 (Age: 51) ??F ?Collect Date: ? 11/25/2006 Location: ? [facility] ? Receive Date: ? 11/29/2006 Provider: ?JUANIS HUGHES SWIMMING POOL INSTALLER AND SERVICER Copy to: ? Specimen/Source: ?ThinPrep Pap Test, Cervix/Endocervix, processed on [employer] ThinPrep Imaging System, with manual evaluation Last Menstrual Period: ? 08/2006 Other: ? Additional clinical information: Previous pap WNL HPVDX - HPV testing requested regardless of diagnosis on current ThinPrep Pap test. ? SPECIMEN ADEQUACY ? Satisfactory for Evaluation - transformation zone component present GENERAL CATEGORIZATION ? Negative for Intraepithelial Lesion or Malignancy INTERPRETATION ? Shift in rosibel present suggestive of bacterial vaginosis. ? Document reviewed and electronically signed by: ? DARRYL Dhaliwal(ASCP) ? Report Date: ??12/03/2006 10:56 End of Report [facility] 11/25/2006 11/29/2006 us Juanis Hughes APRN PATHOLOGY ORDERABLES Fi nal Result [facility] [address] [place] [address] documented in this encounter Visit Diagnoses Not on filedocumented in this encounter
[2024-03-21 11:57] LABS: 2-OH-Ethyl-Flurazepam Negative ng/mL (Cutoff: 10); 7-NH-Clonazepam Negative ng/mL (Cutoff: 10); 7-NH-Flunitrazepam Negative ng/mL (Cutoff: 10); Alpha OH-Alprazolam Negative ng/mL (Cutoff: 10); Alpha-OH Midazolam Negative ng/mL (Cutoff: 10); Alpha-OH-Triazolam Negative ng/mL (Cutoff: 10); Alprazolam Negative ng/mL (Cutoff: 10); Benzodiazepines Interpretation Positive.; Chlordiazepoxide Negative ng/mL (Cutoff: 10); Clobazam Negative ng/mL (Cutoff: 10); Clonazepam Negative ng/mL (Cutoff: 10); Diazepam Negative ng/mL (Cutoff: 10); Flurazepam Negative ng/mL (Cutoff: 10); Lorazepam 241 ng/mL (Cutoff: 10); Midazolam Negative ng/mL (Cutoff: 10); N-Desmethylclobazam Negative ng/mL (Cutoff: 10); Prazepam Negative ng/mL (Cutoff: 10); Temazepam Negative ng/mL (Cutoff: 10); Triazolam Negative ng/mL (Cutoff: 10); Zolpidem Carboxylic acid Negative ng/mL (Cutoff: 10)
== END 2024-03-16 20:09 | disposition home or self-care (01) ==
LOC: NCHCN 20:08
PROVIDERS: PCP Internal Medicine; Visit Provider Internal Medicine
DX: F41.1 Generalized anxiety disorder (principal)
CPT/HCPCS: 80346

== ENCOUNTER 2024-07-13 13:54 | Outpatient (REF) | payer MEDICARE, SELFPAY ==
[2024-07-13 18:48] LABS: ALT 41 U/L (14-59); AST 30 U/L (15-37); Albumin 3.7 g/dL (3.4-5.0); Alkaline Phosphatase 72 U/L (46-116); Anion Gap 0.7 mmol/L (3-11); BUN 20 mg/dL (7-18); Bilirubin, Total 0.5 mg/dL (0.2-1.0); CO2 34.3 mmol/L (21.0-32.0); CREATININE 0.9 mg/dL (0.55-1.02); Calcium 9.6 mg/dL (8.5-10.1); Chloride 103 mmol/L (98-107); Estimated GFR 70.07 (mL/min/1.73m2); Glucose 110 mg/dL (74-106); Potassium 3.8 mmol/L (3.5-5.1); Sodium 138 mmol/L (136-145); Total Protein 7.6 g/dL (6.4-8.2)
== END 2024-07-13 13:55 | disposition home or self-care (01) ==
LOC: NCHCN 13:54
PROVIDERS: PCP Internal Medicine; Visit Provider Physician Assistant
DX: I10 Essential (primary) hypertension (principal)
CPT/HCPCS: 80053

== ENCOUNTER 2025-01-11 12:19 | Outpatient (REF) | payer MEDICARE, SELFPAY ==
[2025-01-19 14:15] LABS: 2-OH-Ethyl-Flurazepam Negative ng/mL (Cutoff: 10); 7-NH-Clonazepam Negative ng/mL (Cutoff: 10); 7-NH-Flunitrazepam Negative ng/mL (Cutoff: 10); Alpha OH-Alprazolam Negative ng/mL (Cutoff: 10); Alpha-OH Midazolam Negative ng/mL (Cutoff: 10); Benzodiazepines Interpretation Positive.; Prazepam Negative ng/mL (Cutoff: 10); Zolpidem Carboxylic acid Negative ng/mL (Cutoff: 10)
== END 2025-01-11 12:20 | disposition home or self-care (01) ==
LOC: NCHCN 12:19
PROVIDERS: PCP Internal Medicine; Visit Provider Physician Assistant
DX: F41.1 Generalized anxiety disorder (principal)
CPT/HCPCS: 80346